=== PATIENT | male | born 1950 | race Caucasian/White ===

== ENCOUNTER → 2024-02-16 08:46 | Outpatient (REF) | payer MEDICARE, OTHER, SELFPAY ==
[2024-02-16 09:23] LABS: % Basophils 0.4 % (0-2); % Eosinophils 2.3 % (0-6); % Immature Granulocytes 0.2 % (0-0.5); % Lymphocytes 16.5 % (20.5-51.1); % Monocytes 12.1 % (1.7-9.3); % Neutrophils 68.5 % (42.2-75.2); Absolute Eosinophils 0.1 10^3/uL (0-0.7); Absolute Lymphocytes 0.9 10^3/uL (1.2-3.4); Absolute Monocytes 0.7 10^3/uL (0.1-0.6); Absolute Neutrophils 3.9 10^3/uL (1.4-6.5); Hematocrit 43.2 % (39.0-52.0); Hemoglobin 15.1 g/dL (13.0-18.0); Mean Corpuscular Hgb 32.4 pg (27.0-31.0); Mean Corpuscular Volume 92.7 fL (80.0-94.0); Mean Platelet Volume 9.9 fL (7.4-10.4); Nucleated Red Blood Cells % 0 % (-); Platelet Count 183 10^3/uL (130-400); Red Blood Cell Count 4.66 10^6/uL (4.70-6.10); Red Cell Dist. Width 13.2 % (11.5-14.5); White Blood Cell Count 5.7 10^3/uL (4.8-10.8)
[2024-02-16 09:34] LABS: ALT (SGPT) 20 U/L (0-50); AST (SGOT) 33 U/L (17-59); Albumin 4.1 g/dl (3.5-5.0); Alkaline Phosphatase 79 U/L (38-126); Blood Urea Nitrogen 15 mg/dl (9-20); Calcium 9.1 mg/dl (8.4-10.2); Carbon Dioxide 27 mmol/L (22-30); Chloride 105 mmol/L (98-107); Glucose 94 mg/dl (70-99); HDL Cholesterol 61 mg/dl; LDL Cholesterol, Calculated 74 mg/dl; Potassium 4.2 mmol/L (3.5-5.1); Sodium 135 mmol/L (135-145); Total Bilirubin 1.2 mg/dl (0.2-1.3); Total Cholesterol 161 mg/dl (50-199); Total Protein 7.1 g/dl (6.3-8.2); Triglyceride 131 mg/dl (10-149); Very Low Density Lipoprotein 26 mg/dl (0-30); eGFR > 60.00
[2024-02-16 10:35] LABS: Vitamin D, 25-OH*** 33.7 ng/mL (30-80)
[2024-02-16 12:03] LABS: Glycohemoglobin (HgbA1c) 5.5 % (4.0-5.6)
== END ==
LOC: REG 08:46
PROVIDERS: ATTENDING PHYSICIAN Nurse Practitioner Family
DX: Z13.0 Encounter for screening for diseases of the blood and blood-forming organs and certain disorders involving the immune mechanism (principal); R73.01 Impaired fasting glucose; E78.5 Hyperlipidemia, unspecified; E55.9 Vitamin D deficiency, unspecified
CPT/HCPCS: 36415; 80053; 80061; 82306; 83036; 85025

== ENCOUNTER 2024-04-15 06:27 | Emergency (ER) | payer MEDICARE, OTHER, SELFPAY ==
[2024-04-15 06:32] VITALS: BP 185/114
--- NOTE | 2024-04-15 06:41 | ED.GENMED ---
History of Present Illness
General
Chief Complaint: Urinary Symptoms
Source: patient and records
Exam Limitations: none
Time Seen by Provider: 04/15/24 06:38
Nursing documentation reviewed up to this point in time: agreed with
Travel History
Have you had any contact with someone who has COVID-19?: No
Do you have any symptoms of coronavirus? Fever > 100 degrees, chills, cough, shortness of breath, sore throat, loss of taste or smell, muscle aches, or headache?: No
History of Present Illness
History of Present Illness:
73-year-old male presents emergency department complaining of hematuria since 5 AM. It started yesterday, and went away, he caths himself.
Past History
Past History
ED Past Medical History: Arrthythmia (afib on coumadin), Cancer (prostate, s/p XRT 2018), HTN and Hypercholesterolemia
ED Past Surgical History: Urological (Vasectomy) and Other (Dental surgery)
Social History
Tobacco: Former smoker
Alcohol: Daily (Whisky 2)
Personal:
Living: with family
Employment: Retired
Review of Systems
Review of Systems
Allergies reviewed?: Yes
All Other Systems: Not applicable
Constitutional: Reports no symptoms
EENT: Reports no symptoms
Respiratory: Reports no symptoms
Cardiac: Reports no symptoms
ABD/GI: Reports no symptoms
: Reports bleeding
Musculoskeletal: Reports no symptoms
Skin: Reports no symptoms
Neurological: Reports no symptoms
Endocrine: Reports no symptoms
Hematologic/Lymphatic: Reports bleeding
Phy Exam
Physical Exam
Physical Exam:
Physical Exam
General: Hypertensive, afebrile
Neck: supple. no meningeal signs. normal posterior pharynx
Heart: s1/s2 regular rate and rhythm, no murmur. equal radial
pulses.
HEENT: Pupils equal round reactive to light, EOMI
Lungs: no acute respiratory distress.
Abdomen: not tender. no CVAT
: Blood on diaper
Neuro: alert and oriented. no focal neurological deficits
Skin: no rash
Psychiatric: well kept. interactive and cooperative
Extremities: no edema. no calf tenderness. negative homans. good distal pulses
Course
Orders/Labs/Results
Orders:
Orders
04/15/24 06:38
IV Insert/Care/Rem.- Treatment PRN
04/15/24 06:40
CBI- Treatment PRN
Solution: ns
Irrigate to Clear?: Yes
Angela Placement- Treatment ONCE
Reason for insertion: Urology Determination
04/15/24 07:26
Lidocaine 2% [Lidocaine Uro-Jet 2%] 1 syringe .ROUTE .[facility]
04/15/24 07:36
Type+Screen Urgent
Complete Blood Count/With Diff Urgent
Comprehensive Metabolic Panel Urgent
Prothrombin Time Urgent
Abnormal Lab Results
04/15/24
07:36
WBC 3.7 L 10^3/uL
(4.8-10.8)
RBC 4.15 L 10^6/uL
(4.70-6.10)
Hct 38.1 L %
(39.0-52.0)
MCH 33.0 H pg
(27.0-31.0)
Absolute Lymphs (auto) 0.7 L 10^3/uL
(1.2-3.4)
Lymphocytes % 18.6 L %
(20.5-51.1)
Monocytes % 9.9 H %
(1.7-9.3)
PT 28.3 H Sec
(11.4-14.6)
Chloride 108 H mmol/L
(98-107)
04/15/24 07:36
04/15/24 07:36
Vital Signs
Initial and Last Documented VS:
Initial Vital Signs
Temp Pulse Resp BP Pulse Ox
98.4 F 80 24 185/114 97
04/15/24 06:32 04/15/24 06:32 04/15/24 06:32 04/15/24 06:32 04/15/24 06:32
Last Documented Vital Signs
Temp Pulse Resp BP Pulse Ox
98.4 F 82 18 163/93 96
04/15/24 06:32 04/15/24 09:13 04/15/24 09:13 04/15/24 09:13 04/15/24 09:13
MDM/Problems Addressed
Differential Diagnosis Includes:
Hematuria, urinary retention
MDM/Problems Addressed:
73-year-old male with hematuria, likely from urethra. Seen by Dr. Back, who placed Angela catheter. He recommends discharge and holding Coumadin for 2 days.
Chronic conditions affecting care: Arrhythmia and Cancer
Acute Exacerbation and/or Progression of Chronic Illness: Arrhythmia and Cancer (Prostate)
*Pulse Oximetry
Patient hypoxic: no
*EKG
Interpreted by ED Provider?: NA
*Interactive Media Marketing Director Interpretation
Rate: Interactive Media Marketing Director- N/A
*Critical Care Note
Total Time (30-74mins, 75-104mins- exclusive of procedures): Not Applicable
Data Reviewed
Review of Other/Old Records Reveals: Operative Reports (Cystoscopy, clot evacuation and prostate fulguration performed on 02/06/2023)
Source: records
Patient Management
Discussion with other providers: Home Theater Experience Expert (TigerText sent to Dr. Back, urology at 739, who will see pt in ED)
Escalation/DeEscalation of care consider admission/obs:
Admit not indicated
ED Attending Note
-
Portions of this chart may have been created with voice recognition software.� Occasional wrong word or��sound alike� substitutions may have occurred due to the inherent limitations of voice recognition software.
Discharge Plan
Departure
Patient Disposition: Home (Routine Discharge)
Date of Disposition: 04/15/24
Time of Disposition: 10:08
Patient with high blood pressure during this ER visit?: Yes
Condition: Good
Discharge Problem:
Hematuria
Instructions: Blood in the Urine (Hematuria), Adult (DC), BLOOD PRESSURE
Prescriptions:
No Action
atorvastatin 10 MG tablet
10 mg PO DAILY
atenolol 50 MG tablet
50 mg PO DAILY
multivitamin with folic acid [Tab-A-[place]] 1 TABLET tablet
1 tab PO DAILY
warfarin 4 mg Tablet
4 mg PO DAILY
Referrals:
Kinga Kee CRNP [Family Provider] -
Sae Caldwell MD [Non-Admitting Privileges] - Call in 1-3 days for appt
Activity Restrictions/Additional Instructions:
Hold coumadin for 2 days. Follow up with [facility] on Tuesday or Tuesday.
Interventions
Interventions:
*Risk Screen - Suicide Last Done: 04/15/24 06:32
*General Assessment Last Done: 04/15/24 07:38
*Neglect/Abuse Screening Last Done: 04/15/24 06:32
ED- Fall Risk Assessment Last Done: 04/15/24 07:39
*ED COVID-19 Vaccine History Last Done: 04/15/24 07:38
ED-Male Genitourinary Assessment Last Done: 04/15/24 08:01
Discharge Date and Time
Print Language: CITIZEN OF [place]
[2024-04-15 07:36] VITALS: BMI 32.2
[2024-04-15 07:40] VITALS: BP 166/110
[2024-04-15 07:52] LABS: % Basophils 0.8 % (0-2); % Eosinophils 1.9 % (0-6); % Immature Granulocytes 0.5 % (0-0.5); % Lymphocytes 18.6 % (20.5-51.1); % Monocytes 9.9 % (1.7-9.3); % Neutrophils 68.3 % (42.2-75.2); Absolute Eosinophils 0.1 10^3/uL (0-0.7); Absolute Lymphocytes 0.7 10^3/uL (1.2-3.4); Absolute Monocytes 0.4 10^3/uL (0.1-0.6); Absolute Neutrophils 2.5 10^3/uL (1.4-6.5); Hematocrit 38.1 % (39.0-52.0); Hemoglobin 13.7 g/dL (13.0-18.0); Mean Corpuscular Volume 91.8 fL (80.0-94.0); Mean Platelet Volume 10.1 fL (7.4-10.4); Nucleated Red Blood Cells % 0 % (-); Platelet Count 179 10^3/uL (130-400); Red Blood Cell Count 4.15 10^6/uL (4.70-6.10); Red Cell Dist. Width 13.3 % (11.5-14.5); White Blood Cell Count 3.7 10^3/uL (4.8-10.8)
[2024-04-15 08:02] LABS: INR 2.66; PT 28.3 Sec (11.4-14.6)
[2024-04-15 08:03] VITALS: BP 153/96
[2024-04-15 08:09] LABS: ALT (SGPT) 20 U/L (0-50); AST (SGOT) 30 U/L (17-59); Albumin 3.7 g/dl (3.5-5.0); Alkaline Phosphatase 73 U/L (38-126); Blood Urea Nitrogen 12 mg/dl (9-20); Calcium 8.9 mg/dl (8.4-10.2); Carbon Dioxide 24 mmol/L (22-30); Chloride 108 mmol/L (98-107); Estimated Creatinine Clearance > 125 ml/min; Glucose 98 mg/dl (70-99); Potassium 4.2 mmol/L (3.5-5.1); Sodium 138 mmol/L (135-145); Total Bilirubin 0.7 mg/dl (0.2-1.3); Total Protein 6.4 g/dl (6.3-8.2); eGFR > 60.00
[2024-04-15 09:13] VITALS: BP 163/93
--- NOTE | 2024-04-15 09:56 | W.PN.URO.CBU ---
Today's Communication / Plan
-
No need for hospitalization
Discharge home with Angela: patient to follow up with Dr. Caldwell
Advise holding warfarin x [address] Ritchie
Assessment / Plan
-
Gross blood per urethra: likely due to a combination of catheter trauma, prior irradiation and use of Coumadin
---
18 Fr Coude catheter placed with modest difficulty due to resistance encountered near proximal urethra
250 ml clear urine recovered
Diagnosis
-
Date of Service: April 15, 2024
-
Patient Diagnosis:
Gross blood per urethra
History of prostate cancer s/p irradiation 2017 (Dr. Reid)
History of urine retention: patient performs self-cath 4 times daily (has recovered only clear urine despite blood per meatus)
Chronic anticoagulation for A fib
Subjective
-
Comfortable
No SP or CVAT
Objective
-
Vital Signs
Temp Pulse Resp BP Pulse Ox
98.4 F 82 18 163/93 96
04/15/24 06:32 04/15/24 09:13 04/15/24 09:13 04/15/24 09:13 04/15/24 09:13
Laboratory Results
04/15/24 07:36
04/15/24 07:36
Review of Systems
-
Constitutional: No Symptoms
Respiratory: No Symptoms
Cardiac: No Symptoms
Abdomen/GI: No Symptoms
: Difficulty Voiding
Neurological: No Symptoms
Physical Exam
-
General - well developed, well nourished, no acute distress
Abdomen - soft, non-tender, bladder non-palpable
Genitalia - clotted blood per meatus
Skin - warm & dry with no rash
[2024-04-15 10:35] VITALS: BP 149/89
== END 2024-04-15 10:35 | disposition home or self-care (01) ==
LOC: EMR 06:27
PROVIDERS: EMERGENCY PHYSICIAN Emergency Medicine; FAMILY PHYSICIAN Nurse Practitioner Family; OTHER PHYSICIAN Specialist
DX: R31.9 Hematuria, unspecified (principal); R33.9 Retention of urine, unspecified; I48.91 Unspecified atrial fibrillation; I10 Essential (primary) hypertension; E78.00 Pure hypercholesterolemia, unspecified; Z79.01 Long term (current) use of anticoagulants; Z85.46 Personal history of malignant neoplasm of prostate; Z92.3 Personal history of irradiation; Z87.891 Personal history of nicotine dependence; Z88.0 Allergy status to penicillin; Z88.8 Allergy status to other drugs, medicaments and biological substances
CPT/HCPCS: 99284; 51702; 80053; 85025; 85610; 86850; 86900; 86901

== ENCOUNTER → 2024-05-01 00:26 | Emergency (ER) | payer MEDICARE, OTHER, SELFPAY ==
[2024-05-01 00:27] VITALS: BP 206/126
--- NOTE | 2024-05-01 00:40 | ED.GENMED ---
History of Present Illness
General
Chief Complaint: Catheter/Tube Problem
Time Seen by Provider: 05/01/24 00:40
Travel History
Have you had any contact with someone who has COVID-19?: No
Do you have any symptoms of coronavirus? Fever > 100 degrees, chills, cough, shortness of breath, sore throat, loss of taste or smell, muscle aches, or headache?: No
History of Present Illness
History of Present Illness:
HPI: Patient presents due to concerns the Angela catheter. There was leakage of urine (not bloody) around the Angela at the meatus. He intermittently has rather significant pain at the penis. He has no other concerns. He wanted to keep his Angela
catheter in for an extra week and was planning on having it removed on 05/07/2024.
EXAM:
GENERAL: Well appearing in no distress for the most part but intermittently does have waves of apparent pain
HEENT: Moist oral mucosa
ABDOMEN: Soft with no peritoneal signs, no tenderness, no bladder distention, somewhat of a protuberant abdomen, Angela catheter in place, diaper in place, Angela bag empty
NEUROLOGIC: Excellent strength all extremities, no coordination deficits
PSYCHIATRIC: Appropriate mental status, normal insight and judgement
EXTREMITIES: Nontender, no edema, moves all extremities equally
SKIN: No rash, no lesions
TIME OF INITIAL ENCOUNTER: 1 AM
NUMBER AND COMPLEXITY OF PROBLEMS ADDRESSED AT THE ENCOUNTER
� Chronic conditions affecting care: Prostate cancer, usually self cath
� Acute Exacerbation and/or Progression of Chronic Illness: This is an acute problem
� Differential Diagnosis includes: Angela catheter malfunction, urinary retention
AMOUNT AND/OR COMPLEXITY OF DATA TO BE REVIEWED AND ANALYZED
� I performed an independent evaluation of and my interpretation is:
EKG:
CT:
X-rays:
Laboratory Studies:
Other: Bladder scan 90 mL
� Review of other/old records: I reviewed the note from Dr. Ruenes from 2 weeks ago as the patient presented at that time with 24 hours of gross blood per urethra. He has a history of adenocarcinoma the prostate status post
radiation and since then has developed urinary retention. He normally caths himself. Urology ended up placing an 18 Bengali coud� last admission.
� Clinical information was obtained by an independent historian: Spoke to the at bedside
� Prescriptions/Medications Considered but not given:
� Further testing considered but not performed:
RISK OF COMPLICATIONS AND/OR MORBIDITY OR MORTALITY OF PATIENT MANAGEMENT
� Social determinants of health affecting care: Lives at home
� Discussion with other providers: I discussed with Dr. Zavala at 1 AM�see below
� Escalation of care including admission/observation vs risk of discharge considered: Dr. Zavala and I agree that we can remove the catheter at this time. He is able to self cath at home. He is to follow-up with his
urologist, Dr. Caldwell.
Past History
Past History
ED Past Medical History: Arrthythmia (afib on coumadin), Cancer (prostate, s/p XRT 2018), HTN and Hypercholesterolemia
ED Past Surgical History: Urological (Vasectomy) and Other (Dental surgery)
Social History
Tobacco: Former smoker
Alcohol: Daily (Whisky 2)
Personal:
Living: with family
Employment: Retired
Phy Exam
Physical Exam
Physical Exam:
See HPI
Course
Orders/Labs/Results
Orders:
Orders
05/01/24 01:13
Lidocaine 2% [Lidocaine Uro-Jet 2%] 1 syringe .ROUTE .[facility]
Vital Signs
Initial and Last Documented VS:
Initial Vital Signs
Temp Pulse Resp BP Pulse Ox
98 F 116 24 206/126 98
05/01/24 00:27 05/01/24 00:27 05/01/24 00:27 05/01/24 00:27 05/01/24 00:27
Last Documented Vital Signs
Temp Pulse Resp BP Pulse Ox
98.8 F 95 20 134/89 96
05/01/24 01:45 05/01/24 01:45 05/01/24 01:45 05/01/24 01:45 05/01/24 01:45
*Critical Care Note
Total Time (30-74mins, 75-104mins- exclusive of procedures): Not Applicable
ED Attending Note
-
Portions of this chart may have been created with voice recognition software.� Occasional wrong word or��sound alike� substitutions may have occurred due to the inherent limitations of voice recognition software.
Discharge Plan
Departure
Patient Disposition: Home (Routine Discharge)
Date of Disposition: 05/01/24
Time of Disposition: 01:12
Patient with high blood pressure during this ER visit?: Yes
Discharge Problem:
Complication of Angela catheter
Prescriptions:
No Action
atorvastatin 10 MG tablet
10 mg PO DAILY
atenolol 50 MG tablet
50 mg PO DAILY
multivitamin with folic acid [Tab-A-[place]] 1 TABLET tablet
1 tab PO DAILY
warfarin 4 mg Tablet
4 mg PO DAILY
Activity Restrictions/Additional Instructions:
I discussed your case with Dr. Zavala (Dr. Back' partner). He agrees that we should take the Angela catheter out now. Return here if worse. Continue to self cath as you normally have in the past. I also recommend that you speak to Dr. Caldwell.
Follow-up with either him or with Dr. Zavala.
Interventions
Interventions:
*Risk Screen - Suicide Last Done: 05/01/24 00:27
*General Assessment Last Done: 05/01/24 00:52
*Neglect/Abuse Screening Last Done: 05/01/24 00:27
ED- Fall Risk Assessment Last Done: 05/01/24 00:47
*ED COVID-19 Vaccine History Last Done: 05/01/24 00:52
FX-Diikmf-Lkykukbvkr Assessment Last Done: 05/01/24 00:47
ED-Male Genitourinary Assessment Last Done: 05/01/24 00:47
Discharge Date and Time
Print Language: HUNGARIAN
[2024-05-01 01:45] VITALS: BP 134/89
== END | disposition home or self-care (01) ==
LOC: EMR 00:26
PROVIDERS: EMERGENCY PHYSICIAN Emergency Medicine; FAMILY PHYSICIAN Nurse Practitioner Family
DX: T83.031A Leakage of indwelling urethral catheter, initial encounter (principal); Y73.1 Therapeutic (nonsurgical) and rehabilitative gastroenterology and urology devices associated with adverse incidents; Y84.6 Urinary catheterization as the cause of abnormal reaction of the patient, or of later complication, without mention of misadventure at the time of the procedure; Z87.891 Personal history of nicotine dependence; N48.89 Other specified disorders of penis; I10 Essential (primary) hypertension
CPT/HCPCS: 99282

== ENCOUNTER → 2024-05-09 10:18 | Outpatient (REF) | payer MEDICARE, OTHER, SELFPAY | LOC: HWRAD 10:18 | PROVIDERS: ATTENDING PHYSICIAN Physician Assistant; FAMILY PHYSICIAN Nurse Practitioner Family; REFERRING PHYSICIAN Urology | DX: R31.0 Gross hematuria (principal); R33.9 Retention of urine, unspecified | CPT/HCPCS: 76775 ==

== ENCOUNTER 2024-09-04 05:54 | Day surgery (SDC) | payer MEDICARE, OTHER, SELFPAY ==
[2024-08-27 09:08] VITALS: BMI 32.2
[2024-09-04] VITALS (10 sets, daily range): BP systolic 109–157; BP diastolic 70–109
[2024-09-04] MEDS: NSS 500 IV (06:53)
[2024-09-04 07:10] LABS: INR 2.51
--- NOTE | 2024-09-04 08:43 | ITS.CL.PN ---
W[facility] - Procedure Note
Procedure
Procedure Note:
Procedure report:
Date: September 04, 2024
History: History of bleeding and elevated stroke risk on warfarin
Procedure report:
After informed consent and patient safety timeout the patient was sedated by the anesthesiology service. General anesthesia was performed. A WANDA probe was placed by Dr. Colón and dedicated imaging demonstrated left atrial appendage thrombus
which was small yet mobile in the midportion of the left atrial appendage. Atrial smoke was also present. The thrombus was difficult to see but was seen in multiple views and to add another data point of imaging a 9 [place]e sheath was placed in the
right femoral vein and intracardiac ultrasound was placed into the right heart. Imaging from the pulmonary artery and the right ventricular outflow tract also demonstrated left atrial appendage thrombus in the proximal portion with left atrial
smoke and there was no pericardial effusion with normal ejection fraction present. As such given the appearance of left atrial appendage thrombus on multiple imaging modalities we made the decision to abort the procedure and to switch the patient
from warfarin therapy to Eliquis therapy and reimage the patient with WANDA in 8 weeks. I discussed with , his outpatient ultrasound technol, and the implanting team in the room who are all in agreement with plan. Will stop Coumadin and will initiate
Eliquis on TuesdaySeptember 05 at 5 mg twice daily.
--- NOTE | 2024-09-04 09:29 | W.PN.UPDATE ---
Update Note
Progress Note Update
Spoke with , our anticoagulation clinic, our DIAMOND WHEEL MOLDER navigator for the watchman team as well as primary operations business partner. Plan is to hold any warfarin today and discontinue. We will initiate Eliquis 5 mg twice daily starting tomorrow morning and I
provided 6 weeks of samples plus a 30-day coupon for Eliquis 5 mg twice daily. I communicated with our scheduling team to reach out to the patient and his to schedule a WANDA in 8 weeks with his primary operations business partner to see if we can dissolve his
LA thrombus and proceed to watchman implantation. We were planning a 20 mm or a 24 mm device but aborted the procedure due to thrombus. He is awake and alert and oriented and holding area and will be discharged later today.
--- NOTE | 2024-09-04 10:57 | CM ---
priced gelacio with patients perscription plan ([employer] ) his first month is $549- of that $505 is his deductible. the next month he pays $91.38/month. pt states he has samples from the cardiol office and a 30 day free coupon. Amber Mccrary NP aware.
== END 2024-09-04 13:00 | disposition home or self-care (01) | DRG 310 ==
LOC: CATH 05:54
PROVIDERS: ATTENDING PHYSICIAN Internal Medicine Cardiovascular Disease; FAMILY PHYSICIAN Nurse Practitioner Family
DX: I48.91 Unspecified atrial fibrillation (principal); I48.92 Unspecified atrial flutter; I10 Essential (primary) hypertension; E66.9 Obesity, unspecified; Z68.32 Body mass index [BMI] 32.0-32.9, adult; F10.10 Alcohol abuse, uncomplicated; E78.5 Hyperlipidemia, unspecified; N36.8 Other specified disorders of urethra; R31.0 Gross hematuria; Z53.8 Procedure and treatment not carried out for other reasons; Z79.01 Long term (current) use of anticoagulants; Z79.899 Other long term (current) drug therapy; Z87.891 Personal history of nicotine dependence; Z85.46 Personal history of malignant neoplasm of prostate; Z92.3 Personal history of irradiation; I08.1 Rheumatic disorders of both mitral and tricuspid valves; Z88.0 Allergy status to penicillin; Z88.8 Allergy status to other drugs, medicaments and biological substances
CPT/HCPCS: 93355; 85610; C1759; C1769; C1892; C1894

== ENCOUNTER 2024-11-08 06:52 | Day surgery (SDC) | payer MEDICARE, OTHER, SELFPAY ==
--- NOTE | 2024-11-05 11:47 | HPS.HSE ---
Family Physician
-
Family Physician: NO INTERVIEW UNKNOWN
Chief Complaint
-
Permanent atrial fibrillation. Left atrial appendage thrombus.
History of Present Illness
The patient is a 74-year-old male presenting today with permanent atrial fibrillation. He reports occasional symptoms associated with his arrhythmia, which include palpitations and dyspnea on exertion. He is on current pharmacological
therapy with Atenolol. He has been prescribed Eliquis for oral anticoagulation. He does have a diagnosis of prostate cancer in 2018 for which he underwent a TURP and CyberKnife radiation treatment. Unfortunately, he has had episodes of recurrent
gross hematuria with urethral bleeding. He has a HAS-BLED score of 6. Given his high HAS-BLED score with recurrent hematuria, he wishes to undergo Watchman implantation to reduce his stroke risk given anticoagulation will need to be discontinued.
Prior to undergoing Watchman implantation, he will need to have a pre-procedural transesophageal echocardiogram. Unfortunately, his transesophageal echocardiogram in mid August 2024 demonstrated a left atrial appendage thrombus despite reported
compliance with Warfarin. At that time, he was switched from Warfarin to Eliquis. He reports compliance with Eliquis over the last 8 weeks. He presently denies chest pain, shortness of breath at rest, fever, chills, nausea, vomiting, cough, sore
throat, or diarrhea.
Medical History
Past Medical History
Past Medical History: Reports Other
Additional Past Medical History:
1. Permanent atrial fibrillation, pharmacological therapy with Atenolol and oral anticoagulation with Eliquis.
2. 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
3. Hypertension.
4. Hyperlipidemia.
5. Mild mitral regurgitation.
6. Mild tricuspid regurgitation.
7. Prostate cancer, 2018, status post TURP and CyberKnife radiation.
8. Obesity, BMI 32.6.
9. Remote history of tobacco abuse.
10. Daily alcohol.
Past Surgical History: Reports Other
Additional Past Surgical History:
1. Transesophageal echocardiogram.
2. TURP.
3. CyberKnife radiation.
4. Vasectomy.
5. Bilateral cataract extraction.
Social History
Tobacco: Former Smoker (He is a former 1 pack per day cigarette smoker who quit tobacco altogether 50 years ago. )
Alcohol: Daily (He reports consuming 1 whiskey drink daily.)
Personal:
Living: Other (He lives with his , daughter, and son-in-law in a 3 story home. He primarily resides on the first floor with his . )
Family History
Family History: Not pertinent
Allergies / Home Medications
Allergy/Medication List:
Home medications:
1. Eliquis 5 mg p.o. twice a day.
2. Atenolol 50 mg p.o. daily.
3. Atenolol 25 mg p.o. at bedtime.
4. Atorvastatin 10 mg p.o. daily.
5. Multivitamin 1 tablet p.o. daily.
6. Ocuvite with lutein 1 tablet p.o. twice a day.
Allergies: ORAL inhibitors. Hydrochlorothiazide. Amlodipine. Lisinopril. Penicillin.
Review of Systems
-
A 12 point ROS was completed and negative except as noted: Yes
Physical Exam
Vital Signs
Blood pressure 146/86. Heart rate 70. Respirations 18. Pulse ox 97% on room air.
Height 6 feet, 2.5 inches. Weight 116.6 kg. BMI 32.6.
Physical Exam
General: Well Developed, Well Nourished and No Apparent Distress
HEENT: NormoCephalic, Moist mucous membranes, Atraumatic and PERRLA
Respiratory: Clear
Cardiac: Irregular Rhythm
GI: Soft, Non Tender, Non Distended and Other (Obese. )
Musculoskeletal: Normal Gait & Station
Skin: Warm and Dry
Neuro: AO x 3 and Nonfocal/grossly intact
Laboratory Results
-
DIAGNOSTIC STUDIES as of 11/08/2024: White blood cell count 5.1. Hemoglobin 14.4. Platelet count 178,000. PT 15.4. INR 1.19. Sodium 138. Potassium 4.1. BUN 17. Creatinine 0.7. Glucose 105. Calcium 9.1. AST 31. ALT 26. Albumin 4.0. Type and screen A
negative.
EKG 11/05/2024: Atrial fibrillation with slow ventricular response.
Impression/Plan
-
IMPRESSION/PLAN:
1. Permanent atrial fibrillation and left atrial appendage thrombus: The patient is in need of a transesophageal echocardiogram with Dr. Alirio Burt on 11/08/2024. This is in preparation for Watchman implantation scheduled for 11/27/[address] Theron Vogt. The benefits and risks of the procedure have been explained to the patient. The patient understands these risks and wishes to proceed.
[2024-11-08 07:40] VITALS: BMI 32.7
== END 2024-11-08 09:00 | disposition home or self-care (01) ==
LOC: CATH 06:52
PROVIDERS: ATTENDING PHYSICIAN Internal Medicine Cardiovascular Disease; FAMILY PHYSICIAN Nurse Practitioner Family
DX: I48.21 Permanent atrial fibrillation (principal); Z85.46 Personal history of malignant neoplasm of prostate; I10 Essential (primary) hypertension; E78.49 Other hyperlipidemia; I08.3 Combined rheumatic disorders of mitral, aortic and tricuspid valves; E66.9 Obesity, unspecified; Z68.32 Body mass index [BMI] 32.0-32.9, adult; Z87.891 Personal history of nicotine dependence; E78.5 Hyperlipidemia, unspecified; Z79.899 Other long term (current) drug therapy; Z88.0 Allergy status to penicillin; Z79.01 Long term (current) use of anticoagulants; Z90.79 Acquired absence of other genital organ(s); I70.0 Atherosclerosis of aorta
CPT/HCPCS: 93312; 93320; 93325

== ENCOUNTER 2024-11-27 05:54 | Inpatient (IN) | payer MEDICARE, OTHER, SELFPAY ==
[2024-11-05 10:19] VITALS: BMI 32.6
--- NOTE | 2024-11-05 11:16 | HPS.HSE ---
Family Physician
-
Family Physician: ALFREDO Ybarra
Chief Complaint
-
Permanent atrial fibrillation.
History of Present Illness
The patient is a 74-year-old male presenting today with permanent atrial fibrillation. He reports occasional symptoms associated with his arrhythmia which include palpitations and dyspnea on exertion. He is on current pharmacological
therapy with Atenolol. He has been prescribed Eliquis for oral anticoagulation. He does have a diagnosis of prostate cancer in 2018 for which he underwent a TURP and CyberKnife radiation treatment. Unfortunately, he has had episodes of recurrent
gross hematuria with urethral bleeding. He has a HAS-BLED score of 6. Given his high HAS-BLED score with recurrent hematuria, he wishes to undergo Watchman implantation to reduce his stroke risk given anticoagulation will need to be discontinued. Of
note, his previous Watchman date had to be rescheduled due to a left atrial appendage thrombus visualized on his pre-operative transesophageal echocardiogram in mid August 2024. At that time, he was switched from Warfarin to Eliquis and he reports
compliance with this medication over the last 8 weeks. A repeat transesophageal echocardiogram is scheduled to occur on 11/08/2024. He presently denies chest pain, shortness of breath at rest, fever, chills, nausea, vomiting, cough, sore throat, or
diarrhea.
Medical History
Past Medical History
Past Medical History: Reports Other
Additional Past Medical History:
1. Permanent atrial fibrillation, pharmacological therapy with Atenolol and oral anticoagulation with Eliquis.
2. Hypertension.
3. Hyperlipidemia.
4. Mild mitral regurgitation.
5. Mild tricuspid regurgitation.
6. 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
7. Prostate cancer, 2018, status post TURP and CyberKnife radiation.
8. Obesity, BMI 32.6.
9. Remote history of tobacco abuse.
10. Daily alcohol.
Past Surgical History: Reports Other
Additional Past Surgical History:
1. Transesophageal echocardiogram.
2. TURP.
3. CyberKnife radiation.
4. Vasectomy.
5. Bilateral cataract extraction.
Social History
Tobacco: Former Smoker (He is a former 1 pack per day cigarette smoker who quit tobacco altogether 50 years ago. )
Alcohol: Daily (He reports consuming 1 whiskey drink daily. )
Personal:
Living: Other (He lives with his , daughter, and son-in-law in a 3 story home. He and his primarily reside on the first floor. )
Family History
Family History: Not pertinent
Allergies / Home Medications
Allergy/Medication List:
Home medications:
1. Eliquis 5 mg p.o. twice a day.
2. Atenolol 50 mg p.o. daily.
3. Atenolol 25 mg p.o. at bedtime.
4. Atorvastatin 10 mg p.o. daily.
5. Multivitamin 1 tablet p.o. daily.
6. Ocuvite with lutein 1 tablet p.o. twice a day.
Allergies: ORAL inhibitors. Hydrochlorothiazide. Amlodipine. Lisinopril. Penicillin.
Review of Systems
-
A 12 point ROS was completed and negative except as noted: Yes
Physical Exam
Vital Signs
Blood pressure 146/86. Heart rate 70. Respirations 18. Pulse ox 97% on room air.
Height 6 feet, 2.5 inches. Weight 116.6 kg. BMI 32.6.
Physical Exam
General: Well Developed, Well Nourished and No Apparent Distress
HEENT: NormoCephalic, Moist mucous membranes and Atraumatic
Respiratory: Clear
Cardiac: Irregular Rhythm
GI: Soft, Non Tender, Non Distended and Other (Obese. )
Musculoskeletal: Normal Gait & Station
Skin: Warm and Dry
Neuro: AO x 3 and Nonfocal/grossly intact
Laboratory Results
-
DIAGNOSTIC STUDIES as of 11/08/2024: White blood cell count 5.1. Hemoglobin 14.4. Platelet count 178,000. PT 15.4. INR 1.19. Sodium 138. Potassium 4.1. BUN 17. Creatinine 0.7. Glucose 105. Calcium 9.1. AST 31. ALT 26. Albumin 4.0. Type and screen A
negative. MRSA screen negative.
EKG 11/05/2024: Atrial fibrillation with slow ventricular response.
Impression/Plan
-
IMPRESSION/PLAN:
1. Permanent atrial fibrillation: The patient is in need of a Watchman implant with Dr. Theron Vogt, who will be assisted by Dr. Raphael Morales, on 11/27/2024. The benefits and risks of the procedure have been explained to the patient. The patient
understands these risks and wishes to proceed. Post-procedure, he will likely continue his current Eliquis dosing. He will undergo a transesophageal echocardiogram 3 months after Watchman implantation to assess device stability.
[2024-11-27] VITALS (16 sets, daily range): BP systolic 95–134; BP diastolic 67–95
[2024-11-27] MEDS: NSS 500 IV (06:31)
--- NOTE | 2024-11-27 08:58 | ITS.CL.PN ---
Shipfitters Supervisor - Procedure Note
Procedure
Procedure Note:
Watchman implantation report
Date: November 27, 2024
Indication: Elevated bleeding risk and elevated stroke risk
Procedure report:
Device implantation: Vogt
Groin access and transseptal strong nitric operator: Carmen
After informed consent and patient safety timeout the patient was sedated by the anesthesiology service and Dr. Colón performed the WANDA. Once the left atrial appendage was cleared and was without thrombus by WANDA under direct ultrasound guidance
vascular access was performed with 1 front wall stick to the [address] [place] [address] vein[address] Vang performed vascular access and then placed an 8 Azerbaijani sheath in the right femoral vein and the pigtail wire was placed up into the SVC. Over this
wire the watchman sheath was brought up to the SVC. Under WANDA guidance the interatrial fossa was interrogated and the sheath was brought to a low anterior position. With direct visualization RF was applied to the pigtail wire which accessed the
left atrium freely and over the wire the sheath was brought into the left atrium. Through the watchman sheath the pigtail was brought up to the left atrial appendage over the pigtail wire and venogram demonstrated a short chicken wing morphology
with a left atrial appendage ostium of 16 mm.
As such a 24 mm device was prepped. I delivered the device after this was exchanged for the pigtail with wet to wet sheath preparation and after forming trackable with the Watchman device the 24 mm device was delivered meeting Pass criteria. Tug
test, ostial position, 13 to 19% compression and left atrial appendage ostial occlusion with the device was demonstrated. The device was then deployed and sheath and catheters were removed to the right atrium. Heparin was given to maintain an ACT
greater than 350 seconds for the duration of the procedure. Sheath and catheters were removed with a [id number] stitch and 40 mg of protamine given.
Impression:
Status post 24 mm watchman delivery
Recommendations:
Oral anticoagulation at current dose 5 mg p.o. twice daily x 3 months with WANDA at 3 months
Copy:Dr. Doug Melendrez
--- NOTE | 2024-11-27 09:15 | ITS.CL.PN ---
Adult Psychiatrist - Procedure Note
Procedure
Procedure Note:
Procedure Note:
WATCHMAN LEFT ATRIAL APPENDAGE OCCLUSION REPORT
Date of Procedure: 11/27/24
Referring: Dr. Doug Burt
Indication: Afib with high bleeding risk and high stroke risk
Operators: Raphael Morales MD, PhD (interventional cardiology); Theron Vogt MD (electrophysiology); Shoaib Colón MD (cardiac imaging)
Anesthesia: general anesthesia provided by the anesthesia staff
PROCEDURE: left atrial appendage occlusion with a 24 mm Watchman FLX
ACCESS:
1. 14F right common femoral vein (closure: figure of eight stitch)
HEMODYNAMIC DATA
LA 12 mmHg
PROCEDURE NARRATIVE:
The patient was intubated and sedated by anesthesiology and then prepped and draped in standard sterile fashion. A WANDA probe was placed by cardiology and imaging performed demonstrating no left atrial appendage thrombus and no pericardial effusion.
Under ultrasound guidance, the right femoral vein was identified and patency confirmed, followed by vessel access using a 18G Cook needle using a modified Selinger technique with needle entry visualized in real-time. An 8F sheath placed. Heparin was
administered to achieve ACT>300.
The 8F sheath was exchanged over a Burst.it RF wire for the Watchman double curve sheath which was advanced to the SVC. The Watchman sheath was then pulled back under fluoroscopic and echo guidance until an appropriate inferior and posterior position
on the septum was achieved. During brief RF application, the wire was advanced through the interatrial septum into the left atrium. The wire was placed in the left upper pulmonary vein as confirmed by fluoroscopy and WANDA. The dilator and sheath
easily tracked across the septum allowing placement of the sheath in the left atrium. Left atrial pressure was measured at 12 mmHg.
A 5F pigtail catheter was advanced through the sheath and placed in the left atrial appendage, and an appendage gram was performed demonstrating anatomy suitable for a 24 mm Watchman FLX device. The device was prepped on the back table, the pigtail
catheter removed, and the device delivered via the sheath to the left atrial appendage. The device was deployed slowly under continuous fluoroscopic and WANDA visualization. After deployment, WANDA imaging was performed to assess PASS criteria. The
device demonstrated excellent positioning, anchor stability on tug test, appropriate sizing with 13-19% compression, and appropriate seal with no leak at 0, 45, 90, or 135 degrees. Given PASS criteria were met, the device was then released.
The delivery system retracted back into the sheath and removed from the body. The sheath was retracted into the right atrium with WANDA demonstrating no significant R-L shunt and pericardial effusion. The sheath was removed and the venotomy closed
with [id number] knot. 40 units protamine was given. The patient was extubated and tolerated the procedure well.
CONCLUSIONS
1. transseptal puncture with WANDA guidance
2. successful deployment of a 24 mm Watchman FLX device under fluoroscopic and WANDA guidance
RECOMMENDATIONS:
1. anticoagulation with Eliquis until repeat WANDA in 3 months
Copy to: Dr. Doug Burt MD (automatic embroidery machine tender); ALFREDO Batista (PCP)
Signed: Raphael Morales MD, PhD
[2024-11-27] MEDS: ANESTHETIC LOZENGE 1 LOZENGE PO (09:56)
--- NOTE | 2024-11-27 13:36 | W.PN.UPDATE ---
Update Note
Progress Note Update
PT seen post Watchman device implant. Right groin site without ht/bleeding, non tender. OOB ambulating, urinating without difficulty. Post EKG AFib 70s as before, no acute changes. Will remain on eliquis and continue other meds as before. Followup
with DCA in 2 weeks and WANDA as scheduled. Home today if groin site/tele remain stable.
--- NOTE | 2024-11-27 13:53 | W.DS.TRANS ---
DC Summary - Sisal Operator
-
Discharge Instructions:
Discharge Diagnosis/Procedures Watchman device implant
Diet Low Cholesterol
Driving Restrictions No driving for 24 hours
Others Tests 3 month follow up WANDA has been scheduled for you
at [facility] on 02/22/2025 with
Javed. You will receive instructions in the
mail and a call the day prior with arrival time.
Instructions:
Stand-Alone Forms: DC Instructions- Cath/EP Lab
Changes to Home Medications: No
Discharge Medications:
DC Medications w/original date entered in [employer]
atenolol 50 mg tablet 50 mg PO DAILY Blood pressure 11/29/19
atorvastatin 10 mg tablet 10 mg PO DAILY High cholesterol 11/29/19
multivitamin with folic acid 400 mcg tablet (Tab-A-[place]) 1 tab PO DAILY Supplement 11/29/19
atenolol 25 mg tablet 25 mg PO HS 08/21/24
vit A 300 mcg-C 200 mg-E 27 mg-lutein 2 mg and minerals tablet (Ocuvite with Lutein) 1 tab PO BID 08/21/24
apixaban 5 mg tablet (Eliquis) 5 mg PO BID #60 tabs 09/04/24
Home Medication Changes
Pending Results: No
== END 2024-11-27 14:54 | disposition home or self-care (01) | DRG 274 ==
LOC: CATH-IN 05:54
PROVIDERS: Internal Medicine Cardiovascular Disease; Student in an Organized Health Care Education/Training Program; ADMITTING PHYSICIAN Internal Medicine Cardiovascular Disease; FAMILY PHYSICIAN Nurse Practitioner Family
PROC: B24BZZ4 Ultrasonography of Heart with Aorta, Transesophageal (ICD-10-PCS; 2024-11-27)
PROC: 02L73DK Occlusion of Left Atrial Appendage with Intraluminal Device, Percutaneous Approach (ICD-10-PCS; 2024-11-27)
DX: I48.21 Permanent atrial fibrillation (principal); Z00.6 Encounter for examination for normal comparison and control in clinical research program; I10 Essential (primary) hypertension; E78.5 Hyperlipidemia, unspecified; E66.9 Obesity, unspecified; Z68.32 Body mass index [BMI] 32.0-32.9, adult; Z87.891 Personal history of nicotine dependence
CPT/HCPCS: 33340; 93005; 93355; C1892; C1894; Q9967

== ENCOUNTER 2025-02-22 06:46 | Day surgery (SDC) | payer MEDICARE, OTHER, SELFPAY | END 2025-02-22 09:41 | disposition home or self-care (01) | LOC: CATH 06:46 | PROVIDERS: ATTENDING PHYSICIAN Internal Medicine Cardiovascular Disease; FAMILY PHYSICIAN Nurse Practitioner Family | DX: Z45.09 Encounter for adjustment and management of other cardiac device (principal); I08.3 Combined rheumatic disorders of mitral, aortic and tricuspid valves; I08.8 Other rheumatic multiple valve diseases; Z95.818 Presence of other cardiac implants and grafts; I10 Essential (primary) hypertension; E78.5 Hyperlipidemia, unspecified; E66.9 Obesity, unspecified; Z68.32 Body mass index [BMI] 32.0-32.9, adult; I70.0 Atherosclerosis of aorta; I48.21 Permanent atrial fibrillation; Z87.891 Personal history of nicotine dependence; Z79.01 Long term (current) use of anticoagulants | CPT/HCPCS: 93312; 93320; 93325 ==

== ENCOUNTER 2025-05-24 09:06 | Emergency (ER) | payer MEDICARE, OTHER, SELFPAY ==
[2025-05-24 09:08] VITALS: BP 175/127
[2025-05-24 09:53] VITALS: BP 159/116
--- NOTE | 2025-05-24 10:35 | ED.GENMED ---
Addendum entered and electronically signed by Chino Mendoza PA-C 05/26/25 09:52:
On levofloxacin, final sensitivity pending
Original Note:
History of Present Illness
<Kena Owens MD, Resident - Last Filed: 05/24/25 12:23>
General
Chief Complaint: Urinary Symptoms
Source: patient and significant other
Exam Limitations: none
Time Seen by Provider: 05/24/25 09:46
Nursing documentation reviewed up to this point in time: agreed with
History of Present Illness
History of Present Illness:
Mr. Cooper is a 74yoM with a PMH notable for Afib (s/p Watchmen, on aspirin, Eliquis stopped February), prostate carcinoma (dx 2017; complicated by radiation proctitis, rectal bleeding), kidney stone in bladder, colon adenoma, HTN, who is
presenting with blood in urine on straight cath since 5 am this morning.
He reports the urine is discolored from beginning to end of urination. The color begins as red and turns brown at the end. He denies new pain with straight cathing. He had hematuria with straight cathing 2 times prior. The most recent time, it was
diagnosed as a penile injury and a catheter was placed to help the wound approximate/heal. The first time, he received a procedure that cleaned out blood blots in the bladder and rectum.
He takes Aspirin 325 mg daily (he did not take his dose this morning). He took Eliquis until February 2025 at his Watchman checkup (placed early 2024).
He denies lightheadedness, dizziness, fatigue. He also denies palpitations, abdominal pain.
He reports he has a stone in his bladder and he is schedule for lithotripsy in a few months.
Past History
<Kena Owens MD, Resident - Last Filed: 05/24/25 12:23>
Past History
ED Past Medical History: Arrthythmia (afib on coumadin), Cancer (prostate, s/p XRT 2017), HTN and Hypercholesterolemia
ED Past Surgical History: Urological (Vasectomy) and Other (Dental surgery)
Social History
Tobacco: Former smoker
Alcohol: Daily (Whisky 2)
Personal:
Living: with family
Employment: Retired
Review of Systems
<Kena Owens MD, Resident - Last Filed: 05/24/25 12:23>
Review of Systems
All Other Systems: ROS reviewed and negative except as documented in HPI and ROS
Phy Exam
<Kena Owens MD, Resident - Last Filed: 05/24/25 12:23>
Physical Exam
Physical Exam:
Genitourinary: no bleeding, no gross abnormalities
Abdominal: no CVA tenderness b/l, normal bowel sounds, no tenderness to palpation
Heart: irregularly irregular
Chest: CTAB
No lower extremity edema
Moist mucous membranes
Genitourinary Exam Male
Exam Male: no discharge and no lesions
Course
<Kena Owens MD, Resident - Last Filed: 05/24/25 12:23>
Orders/Labs/Results
Orders:
Orders
05/24/25 11:02
Urinalysis Reflex To Culture Urgent
Date Specimen was Collected: 05/24/25
Time Specimen was Collected: 11:00
Urine Microscopic Reflex Cult Urgent
Urine Culture Urgent
TONNY Source: U
Specimen Description:
Date Specimen was Collected: 05/24/25
Time Specimen was Collected: 11:00
05/24/25 11:06
US Urinary Bladder Only Urgent
Reason For Exam: reported renal stone in bladder; hx renal stone
05/24/25 11:20
CBC/With Diff [Complete Blood Count/With Diff] Urgent
CMP [Comprehensive Metabolic Panel] Urgent
05/24/25 11:26
Add On- LAB Urgent
Tests Added?: urine culture
05/24/25 12:01
LevoFLOXacin [Levaquin] 500 mg PO NOW STA
Abnormal Lab Results
05/24/25 05/24/25
11:02 11:20
RBC 4.36 L 10^6/uL
(4.70-6.10)
MCH 31.9 H pg
(27.0-31.0)
Absolute Lymphs (auto) 0.6 L 10^3/uL
(1.2-3.4)
Neutrophils % 78.3 H %
(42.2-75.2)
Lymphocytes % 10.2 L %
(20.5-51.1)
Monocytes % 10.0 H %
(1.7-9.3)
Chloride 108 H mmol/L
(98-107)
Ur Occult Blood Reflex 4+ A
(Negative)
Urine Nitrite (Reflex) Positive A
(Negative)
Leukocyte Esterase Rfl 3+ A
(Negative)
Urine RBC 40-50 A /HPF
(0-2)
Urine WBC (Reflex) 40-50 A /HPF
(0-5)
Urine Bacteria (Reflex) Many A
(Negative)
Urine Albumin (Reflex) 2+ A
(Neg - Trace)
05/24/25 11:20
05/24/25 11:20
Vital Signs
Initial and Last Documented VS:
Initial Vital Signs
Temp Pulse Resp BP Pulse Ox
97.9 F 85 18 175/127 99
05/24/25 09:08 05/24/25 09:08 05/24/25 09:08 05/24/25 09:08 05/24/25 09:08
Last Documented Vital Signs
Temp Pulse Resp BP Pulse Ox
97.9 F 85 18 159/116 99
05/24/25 09:08 05/24/25 09:08 05/24/25 09:08 05/24/25 09:53 05/24/25 10:47
<Kale Kimble, DO - Last Filed: 05/24/25 12:03>
Orders/Labs/Results
Orders:
Orders
05/24/25 11:02
Urinalysis Reflex To Culture Urgent
Date Specimen was Collected: 05/24/25
Time Specimen was Collected: 11:00
Urine Microscopic Reflex Cult Urgent
Urine Culture Urgent
TONNY Source: U
Specimen Description:
Date Specimen was Collected: 05/24/25
Time Specimen was Collected: 11:00
05/24/25 11:06
US Urinary Bladder Only Urgent
Reason For Exam: reported renal stone in bladder; hx renal stone
05/24/25 11:20
CBC/With Diff [Complete Blood Count/With Diff] Urgent
CMP [Comprehensive Metabolic Panel] Urgent
05/24/25 11:26
Add On- LAB Urgent
Tests Added?: urine culture
05/24/25 12:01
LevoFLOXacin [Levaquin] 500 mg PO NOW STA
Abnormal Lab Results
05/24/25 05/24/25
11:02 11:20
RBC 4.36 L 10^6/uL
(4.70-6.10)
MCH 31.9 H pg
(27.0-31.0)
Absolute Lymphs (auto) 0.6 L 10^3/uL
(1.2-3.4)
Neutrophils % 78.3 H %
(42.2-75.2)
Lymphocytes % 10.2 L %
(20.5-51.1)
Monocytes % 10.0 H %
(1.7-9.3)
Chloride 108 H mmol/L
(98-107)
Ur Occult Blood Reflex 4+ A
(Negative)
Urine Nitrite (Reflex) Positive A
(Negative)
Leukocyte Esterase Rfl 3+ A
(Negative)
Urine RBC 40-50 A /HPF
(0-2)
Urine WBC (Reflex) 40-50 A /HPF
(0-5)
Urine Bacteria (Reflex) Many A
(Negative)
Urine Albumin (Reflex) 2+ A
(Neg - Trace)
05/24/25 11:20
05/24/25 11:20
Vital Signs
Initial and Last Documented VS:
Initial Vital Signs
Temp Pulse Resp BP Pulse Ox
97.9 F 85 18 175/127 99
05/24/25 09:08 05/24/25 09:08 05/24/25 09:08 05/24/25 09:08 05/24/25 09:08
Last Documented Vital Signs
Temp Pulse Resp BP Pulse Ox
97.9 F 85 18 159/116 99
05/24/25 09:08 05/24/25 09:08 05/24/25 09:08 05/24/25 09:53 05/24/25 10:47
<Kena Owens MD, Resident - Last Filed: 05/24/25 12:23>
MDM/Problems Addressed
MDM/Problems Addressed:
Mr. Cooper is a 74yoM with a PMH of afib, prostate carcinoma, kidney stone in bladder, colonic adneoma, and HTN, who is presenting with hematuria on straight cathing for 1 day.
A UTI, urethral injury, bladder irritation from the stone, and a possible urinary tract carcinoma were considered. Given the urinalysis is positive for nitrites and leukocyte esterase, a UTI is the mostly likely cause for hematuria.
Plan:
Pending urine culture to evaluate for antibiotic-resistant organisms
CBC
CMP
Bladder & renal u/s
Chronic conditions affecting care: Arrhythmia and Cancer (prostate)
<Kena Owens MD, Resident - Last Filed: 05/24/25 12:23>
*Pulse Oximetry
SaO2: 99
Oxygen Mode of Delivery: Room air
Patient hypoxic: no
*Critical Care Note
Total Time (30-74mins, 75-104mins- exclusive of procedures): Not Applicable
ED Attending Note
<Kena Owens MD, Resident - Last Filed: 05/24/25 12:23>
-
Portions of this chart may have been created with voice recognition software.� Occasional wrong word or��sound alike� substitutions may have occurred due to the inherent limitations of voice recognition software.
<Kale Kimble DO - Last Filed: 05/24/25 12:03>
ED Attending Note
Patient seen and examined by attending physician: Yes
I performed a history and physical exam of patient and discussed management with resident, I reviewed resident's note and agree with documented findings and plan of care.: Yes
ED Attending Note:
Seen with resident examined independently 74-year-old male intermittent straight cath bladder stone followed by [facility] urology
Looks comfortable here no fever allergies noted clinically do not see any signs of clot retention will start on antibiotics pending culture encouraged to follow-up with his urologist
Discharge Plan
Departure
Patient Disposition: Home (Routine Discharge)
Date of Disposition: 05/24/25
Time of Disposition: 12:03
Patient with high blood pressure during this ER visit?: Yes
Discharge Problem:
Hematuria, UTI (urinary tract infection)
Instructions: Urinary Tract Infection, Adult (DC), Blood in the Urine (Hematuria), Adult (DC), BLOOD PRESSURE
Prescriptions:
New
levofloxacin 500 mg tablet
500 mg PO DAILY Qty: 4 0RF
No Action
atorvastatin 10 MG tablet
10 mg PO DAILY
atenolol 50 MG tablet
50 mg PO DAILY
multivitamin with folic acid [Tab-A-[place]] 1 TABLET tablet
1 tab PO DAILY
atenolol 25 mg Tablet
25 mg PO HS
Ocuvite with Lutein 300 mcg-200 mg-27 mg-2 mg Tablet
1 tab PO BID
Eliquis 5 mg tablet
5 mg PO BID Qty: 60 5RF
Referrals:
Kinga Kee CRNP [Family Provider, [facility]]
Activity Restrictions/Additional Instructions:
You came to the emergency department for blood in your urine.
You were diagnosed with a urinary tract infection, which likely resulted from straight catheterization. You were give the antibiotic Levaquin 500 mg for 5 days. Please take this once daily.
Please return if you experience chest pain, shortness of breath, or inability to urinate.
Interventions
Interventions:
*Risk Screen - Suicide Last Done: 05/24/25 09:08
*General Assessment Last Done: 05/24/25 09:52
*Neglect/Abuse Screening Last Done: 05/24/25 09:08
*ED- Fall Risk Assessment Last Done: 05/24/25 09:52
*ED COVID-19 Vaccine History Last Done: 05/24/25 09:52
ED-Male Genitourinary Assessment Last Done: 05/24/25 10:06
Discharge Date and Time
Print Language: SWISS
[2025-05-24 11:10] LABS: Urine Character Slightly Cloudy (Clear)
[2025-05-24 11:18] LABS: Urine Red Blood Cell 40-50 /HPF (0-2); Urine White Cell 40-50 /HPF (0-5)
[2025-05-24 11:25] LABS: Hematocrit 40.1 % (39.0-52.0); Hemoglobin 13.9 g/dL (13.0-18.0); Mean Corp Hgb Conc. 34.7 g/dL (33.0-37.0); Mean Corpuscular Volume 92.0 fL (80.0-94.0); Nucleated Red Blood Cells % 0 % (-); Platelet Count 173 10^3/uL (130-400); Red Cell Dist. Width 13.2 % (11.5-14.5)
[2025-05-24 11:48] LABS: ALT (SGPT) 23 U/L (0-50); AST (SGOT) 29 U/L (17-59); Albumin 4.1 g/dl (3.5-5.0); Alkaline Phosphatase 83 U/L (38-126); Blood Urea Nitrogen 16 mg/dl (9-20); Calcium 9.1 mg/dl (8.4-10.2); Carbon Dioxide 24 mmol/L (22-30); Chloride 108 mmol/L (98-107); Glucose 97 mg/dl (70-99); Potassium 4.5 mmol/L (3.5-5.1); Sodium 137 mmol/L (135-145); Total Protein 7.0 g/dl (6.3-8.2); eGFR > 60.00
[2025-05-24] MEDS: LEVAQUIN 500 MG PO (12:20)
[2025-05-24 12:23] VITALS: BP 157/99
== END 2025-05-24 12:29 | disposition home or self-care (01) ==
LOC: EMR 09:06
PROVIDERS: EMERGENCY PHYSICIAN Emergency Medicine; FAMILY PHYSICIAN Nurse Practitioner Family
DX: N39.0 Urinary tract infection, site not specified (principal); R31.9 Hematuria, unspecified; I48.91 Unspecified atrial fibrillation; I10 Essential (primary) hypertension; E78.00 Pure hypercholesterolemia, unspecified; Z79.01 Long term (current) use of anticoagulants; Z79.82 Long term (current) use of aspirin; Z87.442 Personal history of urinary calculi; Z87.891 Personal history of nicotine dependence
CPT/HCPCS: 99284; 76857; 80053; 81003; 81015; 85025; 87077; 87086; 87186

== ENCOUNTER → 2025-06-04 08:31 | Outpatient (REF) | payer MEDICARE, OTHER, SELFPAY ==
[2025-06-04 09:53] LABS: Glycohemoglobin (HgbA1c) 5.4 % (4.0-5.6)
[2025-06-04 11:05] LABS: ALT (SGPT) 20 U/L (0-50); AST (SGOT) 27 U/L (17-59); Albumin 4.1 g/dl (3.5-5.0); Alkaline Phosphatase 80 U/L (38-126); Blood Urea Nitrogen 13 mg/dl (9-20); Calcium 9.1 mg/dl (8.4-10.2); Carbon Dioxide 24 mmol/L (22-30); Chloride 108 mmol/L (98-107); Glucose 89 mg/dl (70-99); HDL Cholesterol 51 mg/dl; LDL Cholesterol, Calculated 61 mg/dl; Potassium 4.5 mmol/L (3.5-5.1); Sodium 138 mmol/L (135-145); Total Protein 6.8 g/dl (6.3-8.2); Very Low Density Lipoprotein 14 mg/dl (0-30); eGFR > 60.00
== END ==
LOC: REG 08:31
PROVIDERS: ATTENDING PHYSICIAN Nurse Practitioner Family
DX: Z09 Encounter for follow-up examination after completed treatment for conditions other than malignant neoplasm (principal); E78.5 Hyperlipidemia, unspecified; R73.01 Impaired fasting glucose
CPT/HCPCS: 36415; 80053; 80061; 83036

== ENCOUNTER → 2025-08-06 09:01 | Outpatient (REF) | payer MEDICARE, OTHER, SELFPAY ==
[2025-08-06 11:29] LABS: PSA, Total - Diagnostic < 0.06 ng/ml (0.0-4.0)
== END ==
LOC: REG 09:01
PROVIDERS: ATTENDING PHYSICIAN Urology; FAMILY PHYSICIAN Nurse Practitioner Family
DX: N30.41 Irradiation cystitis with hematuria (principal); C61 Malignant neoplasm of prostate
CPT/HCPCS: 36415; 84153